=== PATIENT | male | born 1995 | race Caucasian/White ===

== ENCOUNTER → 2020-09-13 | Outpatient (REF) | payer BC, OTHER, SELFPAY | LOC: M LAB REF 12:19 | PROVIDERS: ATTEND Physician Assistant | DX: Z20.828 Contact with and (suspected) exposure to other viral communicable diseases (principal) ==

== ENCOUNTER 2023-02-12 10:16 | Emergency (ER) | payer OTHER, SELFPAY ==
[~2023-02-12] VITALS: Ht 182.9 cm; Wt 131.5 kg
[2023-02-12 10:58] LABS: BASO % 0.5 % (0.0-1.0); EOS # 0.1 10^3/uL (0.0-0.5); EOS % 0.6 % (0.0-3.0); HEMATOCRIT 50.2 % (42.0-52.0); HEMOGLOBIN 16.3 g/dl (13.5-17.5); LYMPH # 1.6 10^3/uL (1.5-5.0); MEAN CORPUSCULAR HEMOGLOBIN 28.1 pg (27.0-33.0); MEAN CORPUSCULAR HGB CONC 32.5 g/dl (32.0-36.5); MEAN CORPUSCULAR VOLUME 86.6 fl (80.0-96.0); MONO # 0.4 10^3/uL (0.0-0.8); MONO % 5.2 % (2.0-8.0); NEUTROPHILS # 6.1 10^3/uL (1.5-8.5); NEUTROPHILS % 74.5 % (36.0-66.0); PLATELET COUNT, AUTOMATED 237 10^3/uL (150-450); WHITE BLOOD COUNT 8.1 10^3/uL (4.0-10.0)
[2023-02-12 11:17] LABS: LIPASE 27 U/L (12-53)
[2023-02-12 11:18] LABS: CK-MB VALUE MASS < 1.0 NG/ML (<3.6)
[2023-02-12 11:19] LABS: ALBUMIN 4.2 G/DL (3.2-5.2); ALKALINE PHOSPHATASE 73 U/L (46-116); ALT/SGPT 34 U/L (7.0-40); AST/SGOT 34 U/L (<34); BILIRUBIN,DIRECT 0.2 MG/DL (<0.4); BILIRUBIN,TOTAL 0.6 MG/DL (0.3-1.2); BLOOD UREA NITROGEN 13 MG/DL (9-23); CALCIUM LEVEL 8.8 MG/DL (8.5-10.1); CARBON DIOXIDE LEVEL 28 MMOL/L (20-31); CHLORIDE LEVEL 108 MMOL/L (98-107); CREATININE FOR GFR 0.88 MG/DL (0.70-1.30); GLOMERULAR FILTRATION RATE > 60.0 (>60); GLUCOSE, FASTING 95 MG/DL (60-100); POTASSIUM SERUM 4.2 MMOL/L (3.5-5.1); SODIUM LEVEL 143 MMOL/L (136-145); TOTAL PROTEIN 6.7 G/DL (5.7-8.2)
[2023-02-12 11:23] LABS: THYROID STIMULATING HORMONE 1.092 uIU/ML (0.55-4.78)
[2023-02-12 11:24] LABS: FREE T4 1.14 NG/DL (0.89-1.76)
[2023-02-12 11:30] LABS: CPK CREATINE PHOSPHOKINASE 376 U/L (46-171); MB/CK RELATIVE INDEX 0.26 (< OR =4)
[2023-02-12] MEDS ORDERED: HOLTER MONITOR XX ×2 (12:22→12:23)
[2023-02-12 12:34] VITALS: BP 125/86
== END 2023-02-12 12:35 | disposition home or self-care (01) ==
LOC: M ED 10:16
DX: R00.2 Palpitations (principal); Z95.818 Presence of other cardiac implants and grafts